=== PATIENT | female | born 1970 | race Two or more races ===

== ENCOUNTER 2016-09-29 01:51 | Emergency (ER) | payer SELFPAY ==
[2016-09-29 02:02] VITALS: TEMP 98.4; BMI 36.6
[2016-09-29] MEDS ORDERED: KETOROLAC TROMETH 30 MG/ML VIAL IV ONE (02:11)
[2016-09-29] MEDS ORDERED: NS 1,000 ML IV ONE (02:11)
--- NOTE | 2016-09-29 02:13 | EDPRACDOC ---
- General Information Chief Complaint: Female Urogenital Problems Stated Complaint: BLOOD IN URINE Time Seen by Provider: 09/29/16 01:59 Information Source: Patient Mode Of Arrival: Car Home Medications: Home Medications Ondansetron HCl [Zofran] 4 mg PO Q6H PRN #20 tab 12/05/13 Oxycodone HCl/Acetaminophen [Percocet 5-325 mg Tablet] 1 tab PO Q4-6H PRN #10 tab 12/05/13 Hydrocodone/Acetaminophen [Lortab 5-325 mg Tablet] 1 each PO Q4H PRN #15 tablet 09/29/16 Phenazopyridine HCl [Pyridium] 200 mg PO TID #6 tablet 09/29/16 Sulfamethoxazole/Trimethoprim [Bactrim Ds Tablet] 1 tab PO BID #14 tab 09/29/16 Allergies/Adverse Reactions: Allergies Allergy/AdvReac Type Severity Reaction Status Date / Time No Known Allergies Allergy Verified 09/29/16 01:59 - History of Present Illness HPI: PT HAS HAD LEFT FLANK AND SUPRAPUBIC PAIN FOR 12 HRS. PT HAS ALSO SEEN SOME BLOOD IN URINE. Onset: 12 hours Urinary Pain Location: Reports: Suprapubic, Left Flank Symptom Onset: Reports: Gradual Pain Severity: Moderate History of: Reports: None Oral Intake: Normal Urinary Output: Normal ED Past Medical History - Patient Medical History Cardiac History: Reports: Hypercholesterolemia Psychological History: Denies: Depression Surgical History: Reports: Hysterectomy - Social Medical History Smoking Status: Never smoker ETOH: None Substance Abuse: None Lives In: Home EDM Review of Systems - Review of Systems ROS Negative Except as Marked: Yes All systems reviewed and were negative except as marked Gastrointestinal: Pain Genitourinary: Dysuria, Hematuria, Flank Pain - Physical Exam Constitutional: Alert (Awake), No apparent distress Oriented to: Time, Person, Place Last recorded Vital Signs: Last Vital Signs Temp 98.4 F 09/29/16 02:00 Pulse 92 09/29/16 02:00 Resp 20 09/29/16 02:00 BP 126/76 09/29/16 02:00 Pulse Ox 97 09/29/16 02:00 Oxygen Pulse Oxygen Saturation 97 O2 Device Room Air Oxygen Flow Rate Fraction of Inspired Oxygen ( FIO2) - HEENT Head: Normal ( normocephalic) Eye Exam: Normal (PERRL, EOMI, Sclera white) Oropharynx: Normal (Pharynx:Moist without exudate,Gums-no swelling) ENT EAC: Normal TMJ: Normal Nose: No Symptoms Reported (septum midline) Neck: Normal (FROM, trachea at midline) - Respiratory/Cardiovascular Respiratory: Normal - CTA (BBS clear to auscultation without adventitious sounds ) Cardiovascular: Normal (RRR without murmur, gallop or rub) - GI Auscultation: Normal (NABS) Palpation: Normal (Soft,No rebound or guarding, non distended) Tenderness: Mild, Suprapubic Wilson's Sign: Negative - Musculoskeletal Back: Normal (Non-Tender) Extremities: Normal (Normal tone, Pulses 2+ No cyanosis or edema, FROM) - Integumentary Skin: Normal, Warm, Dry Lymphatics: Normal (no adenopathy) - Neurologic Memory Impaired: Normal Motor Function: Normal (Normal tone, Pulses 2+ No cyanosis or edema, FROM) Cranial Nerve: Normal (CN II-X11 intact sensation, strength 5/5) Cerebellar: Normal Mood Description: Normal Perception: Normal - Re-evaluation Re-evaluation 1 Re-evaluation Time: 03:30 (IMPROVED) - Results 09/29/16 02:40 09/29/16 02:40 - Diagnostic Imaging Abdomen Image interpreted by: Radiologist IMPRESSION: No renal or ureteral stone or obstruction. Cholelithiasis. Thick-walled bladder may be due to under distention or infection. - Departure Yes I personally saw and evaluated the patient. Disposition: Home Condition: Fair Final Diagnosis: UTI (urinary tract infection), Cholelithiasis Instructions: Urinary Tract Infection in Women (ED), Gallstones (ED) Education/Counseling Given To: Patient Education/Counseling Given Regarding: Diagnosis, Treatment, Follow Up Referrals: None,No Provider [Primary Care Provider] - One Week Darinel Woodward MD [Staff Physician] - One Week Prescriptions: New Hydrocodone/Acetaminophen [Lortab 5-325 mg Tablet] 1 each PO Q4H PRN #15 tablet PRN Reason: Pain Phenazopyridine HCl [Pyridium] 200 mg PO TID #6 tablet Sulfamethoxazole/Trimethoprim [Bactrim Ds Tablet] 1 tab PO BID #14 tab No Action Oxycodone HCl/Acetaminophen [Percocet 5-325 mg Tablet] 1 tab PO Q4-6H PRN # 10 tab PRN Reason: Pain Ondansetron HCl [Zofran] 4 mg PO Q6H PRN #20 tab PRN Reason: Nausea/Vomiting
[2016-09-29 02:43] LABS: AUTOMATED BASOPHIL 0.9 % (0-2); AUTOMATED EOSINOPHIL 0.7 % (0-5); AUTOMATED LYMPH 21.1 % (17-44); AUTOMATED MONOCYTE 6.6 % (3-10); AUTOMATED NEUTROPHIL 70.7 % (45-76); MPV 8.5 fL (7.4-10.4)
[2016-09-29 02:51] LABS: LEUKOCYTES/URINE 2+ (NEGATIVE); NITRITE/URINE NEG (NEGATIVE); URINE OCCULT BLOOD 3+ (NEG/TRACE); WBC/URINE 20-30 (0-5)
[2016-09-29] MEDS ORDERED: PHENAZOPYRIDINE 100 MG TAB PO ONE (03:18)
--- NOTE | 2016-09-29 03:18 | DIRPT ---
CLINICAL DATA: Left flank pain. Pelvic pain. Hematuria for 1 day. White cell count 19.1. Current urinary tract infection. History of uterine mass. EXAM: CT ABDOMEN AND PELVIS WITHOUT CONTRAST TECHNIQUE: Multidetector CT imaging of the abdomen and pelvis was performed following the standard protocol without IV contrast. COMPARISON: 07/23/2013 FINDINGS: Lung bases are clear. Kidneys are symmetrical in size and shape. No hydronephrosis or hydroureter. No renal, ureteral, or bladder stones. Cholelithiasis. No bile duct dilatation or pericholecystic infiltration. The unenhanced appearance of the liver, spleen, pancreas, adrenal glands, abdominal aorta, inferior vena cava, and retroperitoneal lymph nodes is unremarkable. Stomach, small bowel, and colon are decompressed. Scattered stool in the colon. No free air or free fluid in the abdomen. Abdominal wall musculature appears intact. Pelvis: The appendix is normal. Uterus is surgically absent. No pelvic mass or lymphadenopathy. Bladder wall is somewhat thickened but this may just be due to under distention. Cystitis is not excluded however. No free or loculated pelvic fluid collections. No evidence of diverticulitis. No destructive bone lesions. IMPRESSION: No renal or ureteral stone or obstruction. Cholelithiasis. Thick-walled bladder may be due to under distention or infection. Electronically Signed By: Nir Hagan M.D. On: 09/29/2016 03:15
[2016-09-29] MEDS ORDERED: CEFTRIAXONE 1 GM in D5W 100 ML IV ONE (03:19)
[2016-09-29 03:39] VITALS: BP 104/53; PULSE 76
== END 2016-09-29 04:03 | disposition home or self-care (01) ==
LOC: ED 01:51
DX: N39.0 Urinary tract infection, site not specified (principal); K80.20 Calculus of gallbladder without cholecystitis without obstruction
CPT/HCPCS: 36415; 74176; 81001; 85025; 96361; 96365; 96375; 99283; J0696; J1885; J3490; J7060